=== PATIENT | male | born 1970 | race Two or more races ===

== ENCOUNTER 2020-10-26 07:10 | Outpatient (CLI) | payer OTHER | END 2020-10-26 07:19 | disposition home or self-care (01) | LOC: TOM 07:10 | PROVIDERS: ATTEND Internal Medicine Gastroenterology | DX: K63.5 Polyp of colon (principal); Z86.010 Personal history of colon polyps; K56.690 Other partial intestinal obstruction ==

== ENCOUNTER 2020-11-13 07:21 | Outpatient (CLI) | payer OTHER | END 2020-11-13 07:26 | disposition home or self-care (01) | LOC: RX STUDY 07:21 | DX: K21.9 Gastro-esophageal reflux disease without esophagitis (principal) ==